=== PATIENT | male | born 1995 | race Caucasian/White ===

== ENCOUNTER 2017-05-02 17:28 | Emergency (ER) | payer OTHER ==
[2017-05-02 17:34] VITALS: BP 159/92; PULSE 111; RESP 18; TEMP 98
--- NOTE | 2017-05-02 18:11 | ED ---
General Adult HPI - General Chief complaint: Urogenital Stated complaint: LOWER BACK PAIN, POSS UTI Time Seen by Provider: 05/02/17 18:02 Source: patient, RN notes reviewed Mode of arrival: ambulatory Limitations: no limitations - History of Present Illness Initial comments: Patient 22-year-old male who presents emergency room today with chief complaint of dysuria. Patient does not that his had burning urination when he urinates on and off over the last 3 days. He also admits that he's had some lower back pain in the middle that is also been off and on. He states he still having some lower back pain at this time currently rates it 3/10. He states it's just an irritating type pain. Denies any injury or trauma. Patient states has not noticed any hematuria. There is no drainage or discharge. Patient denies any recent fever, chills, shortness of breath, chest pain, abdominal pain, nausea or vomiting, numbness or tingling, constipation or diarrhea, headaches or visual changes, or any other complaints. - Related Data Home Medications Medication Instructions Recorded Confirmed No Known Home Medications [No 05/02/17 05/02/17 Known Home Medications] Allergies Allergy/AdvReac Type Severity Reaction Status Date / Time No Known Allergies Allergy Verified 05/02/17 18:14 Review of Systems ROS Statement: Those systems with pertinent positive or pertinent negative responses have been documented in the HPI. ROS Other: All systems not noted in ROS Statement are negative. Past Medical History Past Medical History: Asthma History of Any Multi-Drug Resistant Organisms: None Reported Past Surgical History: Orthopedic Surgery Additional Past Surgical History / Comment(s): bilateral feet Past Psychological History: No Psychological Hx Reported Smoking Status: Never smoker Past Alcohol Use History: Occasional Past Drug Use History: None Reported General Exam - General Exam Comments Initial Comments: General: The patient is awake and alert, in no distress, and does not appear acutely ill. Eye: Pupils are equal, round and reactive to light, extra-ocular movements are intact. No nystagmus. There is normal conjunctiva bilaterally. No signs of icterus. Ears, nose, mouth and throat: There are moist mucous membranes and no oral lesions. Neck: The neck is supple, there is no tenderness or JVD. Cardiovascular: There is a regular rate and rhythm. No murmur, rub or gallop is appreciated. Respiratory: Lungs are clear to auscultation, respirations are non-labored, breath sounds are equal. No wheezes, stridor, rales, or rhonchi. Gastrointestinal: Soft, non-distended, non-tender abdomen without masses or organomegaly noted. There is no rebound or guarding present. No CVA tenderness. Musculoskeletal: Normal ROM, no tenderness. Strength 5/5. Sensation intact. Pulses equal bilaterally 2+. Neurological: A&O x 3. CN II-XII intact, There are no obvious motor or sensory deficits. Coordination appears grossly intact. Speech is normal. Skin: Skin is warm and dry and no rashes or lesions are noted. Psychiatric: Cooperative, appropriate mood & affect, normal judgment. : Circumcised male no sign of drainage. No redness no erythema. No tenderness on exam. Limitations: no limitations Course Vital Signs 05/02/17 17:30 Temperature 98.0 F Pulse Rate 111 H Respiratory 18 Rate Blood Pressure 159/92 O2 Sat by Pulse 100 Oximetry Medical Decision Making - Medical Decision Making Patient reexamined at this time shows no signs of distress. Patient has normal exam. There is no drainage or discharge. She denies any chance of STDs as he states he's only been with 1 partner. Patient has had no other symptoms other than some dysuria that comes and goes with a burning sensation. Patient' s urinalysis reviewed show no sign of infection. No blood. Signs and symptoms of possible kidney stone or a stricture were discussed with patient. Patient does have cultures that are pending at this time. He is advised to follow-up urologist. Advised return if any symptoms increase or worsen. - Lab Data Lab Results 05/02/17 Range/Units 18:19 Urine Color Light Yellow Urine Appearance Clear (Clear) Urine pH 6.5 (5.0-8.0) Ur Specific Cha[place]in 1.009 (1.001-1.035) Urine Protein Negative (Negative) Urine Glucose (UA) Negative (Negative) Urine Ketones Negative (Negative) Urine Blood Negative (Negative) Urine Nitrite Negative (Negative) Urine Bilirubin Negative (Negative) Urine Urobilinogen <2.0 (<2.0) mg/dL Ur Leukocyte Esterase Negative (Negative) Disposition Clinical Impression: Dysuria Disposition: HOME SELF-CARE Condition: Good Instructions: Dysuria (ED) Additional Instructions: Please follow-up with urologist/family doctor in the next 2 days of symptoms have not improved. Please return to emergency room if the symptoms increase or worsen or for any other concerns. Referrals: None,Stated [Primary Care Provider] - 1-2 days Bhupendra Whitehead MD [STAFF PHYSICIAN] - 1-2 days Time of Disposition: 18:51
[2017-05-02 18:40] LABS: Appearance,Urine Clear (Clear); Bilirubin,Urine Negative (Negative); Glucose,Urine (UA) Negative (Negative); Ketones,Urine Negative (Negative); Leukocyte Esterase,Urine Negative (Negative); Nitrite,Urine Negative (Negative); PH, Urine 6.5 (5.0-8.0); Protein,Urine Negative (Negative); Specific Gravity,Urine 1.009 (1.001-1.035); UA Billing (MACRO vs. MICRO) CHEM; Urobilinogen,Urine <2.0 mg/dL (<2.0)
== END 2017-05-02 19:03 | disposition home or self-care (01) ==
LOC: EC 17:28
DX: R30.0 Dysuria (principal); M54.5 Low back pain
CPT/HCPCS: 81003; 87086; 87491; 87591; 99283

== ENCOUNTER 2017-07-04 03:16 | Emergency (ER) | payer OTHER ==
[2017-07-04 03:22] VITALS: BP 139/90; PULSE 92; RESP 20; TEMP 97.5
[2017-07-04] MEDS ORDERED: LORazepam 1 MG TAB PO STA (03:28)
--- NOTE | 2017-07-04 03:31 | ED ---
General Adult HPI - General Chief complaint: Dizziness Stated complaint: anxiety Time Seen by Provider: 07/04/17 03:24 Source: patient Mode of arrival: wheelchair Limitations: no limitations - History of Present Illness Initial comments: 22-year-old male presents to the emergency department with a chief complaint of anxiety. He states that for the last 2 days every time he feels anything off in his body he becomes very anxious about it he starts googling possible causes. He was seen at [facility] 2 nights ago for an asthma exacerbation he states he's been using his inhaler and that has improved but tonight he woke up and he just felt very off he felt very anxious. He started to become very concerned about his health without that he should be seen. Patient states that he doesn't really feel lightheaded like he is going to pass out and the wound doesn't appear to be spinning he states that he just feels off. The patient states he hasn't had any high fevers he denies any cough cold runny nose. He states his asthma symptoms have resolved. He states that he just to make sure that it was okay. Besides asthma there is no significant health history. Patient denies any recent fever, chills, shortness of breath, chest pain, back pain, abdominal pain, nausea vomiting, numbness or tingling, dysuria or hematuria, constipation or diarrhea, headaches or visual changes, or any other current symptoms. - Related Data Home Medications Medication Instructions Recorded Confirmed Albuterol Sulfate [Proair Hfa] 1 - 2 puff INHALATION Q6HR PRN 07/04/17 07/04/17 Allergies Allergy/AdvReac Type Severity Reaction Status Date / Time No Known Allergies Allergy Verified 07/04/17 03:22 Review of Systems ROS Statement: Those systems with pertinent positive or pertinent negative responses have been documented in the HPI. ROS Other: All systems not noted in ROS Statement are negative. Past Medical History Past Medical History: Asthma History of Any Multi-Drug Resistant Organisms: None Reported Past Surgical History: Orthopedic Surgery Additional Past Surgical History / Comment(s): bilateral feet Past Psychological History: Anxiety Smoking Status: Former smoker Past Alcohol Use History: Occasional Past Drug Use History: None Reported General Exam Limitations: no limitations General appearance: alert, anxious Head exam: Present: atraumatic, normocephalic, normal inspection Neck exam: Present: normal inspection. Absent: tenderness, meningismus, lymphadenopathy Respiratory exam: Present: normal lung sounds bilaterally. Absent: respiratory distress, wheezes, rales, rhonchi, stridor Cardiovascular Exam: Present: regular rate, normal rhythm, normal heart sounds. Absent: systolic murmur, diastolic murmur, rubs, gallop, clicks Back exam: Present: normal inspection Neurological exam: Present: alert, oriented X3 Psychiatric exam: Present: normal affect, normal mood, anxious Skin exam: Present: warm, dry, intact, normal color. Absent: rash Course Vital Signs 07/04/17 03:19 Temperature 97.5 F L Pulse Rate 92 Respiratory 20 Rate Blood Pressure 139/90 O2 Sat by Pulse 100 Oximetry - Reevaluation(s) Reevaluation #1: 07/04/17 03:54 patient reassessed and states he is feeling better. Medical Decision Making - Medical Decision Making 22-year-old male presents with what appears to be anxiety. Give him Ativan he is having some improvement. At this time we discussed follow-up with a counselor. We did give him follow-up with his family care doctor we discussed return parameters all questions. Patient stated that he understood and he is. This time the patient will be discharged home. Disposition Clinical Impression: Anxiety Disposition: HOME SELF-CARE Condition: Stable Instructions: Anxiety (ED) Additional Instructions: Please use medication as discussed. Please follow up with family doctor if symptoms have not improved over the next two days. Please return to the emergency room if your symptoms increase or worsen or for any other concerns. Referrals: Nitish Peacock MD [Primary Care Provider] - 1-2 days Time of Disposition: 03:54
== END 2017-07-04 03:59 | disposition home or self-care (01) ==
LOC: EC 03:16
DX: F41.9 Anxiety disorder, unspecified (principal); Z87.891 Personal history of nicotine dependence
CPT/HCPCS: 99283